=== PATIENT | female | born 1995 | race Caucasian/White ===

== ENCOUNTER 2019-09-05 16:49 | Emergency (ER) | payer SELFPAY ==
[2019-09-05 16:54] VITALS: BP 113/71
[2019-09-05] MEDS ORDERED: PHENAZOPYRIDINE HCL 200 MG TABLET PO ONE (17:03)
--- NOTE | 2019-09-05 17:06 | ER Document Report ---
HPI - HPI Patient complains to provider of: PAIN WITH VOID Time Seen by Provider: 09/05/19 16:59 Onset: This morning Onset/Duration: Sudden Quality of pain: Burning Context: 24-year-old female presents with complaints of pain with void. Reports [facility] and treated for STD and BV. She reports she still taking antibiotics for the BV. She was treated for the STD. She reports at that time they told her that she did not have a urinary tract infection. She reports when she woke up this morning she had pain with voiding. She denies fever vomiting diarrhea. Denies flank and abdominal pain. She declines a pelvic to test for STDs. Associated Symptoms: None Exacerbated by: Denies Relieved by: Denies Similar symptoms previously: Yes Recently seen / treated by doctor: Yes - REPRODUCTIVE Reproductive: DENIES: : Past Medical History - General Information source: Patient Last Menstrual Period: ONE WEEK AGO - Social History Smoking Status: Unknown if Ever Smoked Frequency of alcohol use: None Drug Abuse: None Family History: Reviewed & Not Pertinent Patient has suicidal ideation: No Patient has homicidal ideation: No Neurological Medical History: Reports: Hx Migraine Endocrine Medical History: Denies: Hx Diabetes Mellitus Type 1 Renal/ Medical History: Reports: Other - BV Psychiatric Medical History: Reports: Hx Anxiety, Hx Attention Deficit Hyperactivity Disorder, Hx Bipolar Disorder Past Surgical History: Reports: Hx Tonsillectomy - adnoids - Immunizations Immunizations up to date: Yes Hx Diphtheria, Pertussis, Tetanus Vaccination: Yes - unknown Vertical Provider Document - CONSTITUTIONAL Agree With Documented VS: Yes Exam Limitations: No Limitations General Appearance: WD/WN, No Apparent Distress - INFECTION CONTROL TRAVEL OUTSIDE OF THE [place] IN LAST 30 DAYS: No - HEENT HEENT: Atraumatic, Normocephalic. negative: Conjuctival Injection - NECK Neck: Supple - RESPIRATORY Respiratory: Breath Sounds Normal, No Respiratory Distress - CARDIOVASCULAR Cardiovascular: Regular Rate, Regular Rhythm - GI/ABDOMEN Gastrointestinal: negative: Abdomen Soft, Abdomen Non-Tender - BACK Back: negative: CVA Tenderness-Right, CVA Tenderness-Left - MUSCULOSKELETAL/EXTREMETIES Musculoskeletal/Extremeties: FRANK LOPEZ - NEURO Level of Consciousness: Awake, Alert, Appropriate - DERM Integumentary: Warm, Dry Course - Re-evaluation Re-evalutation: 09/05/19 17:59 UA with positive leukocytes large amount of WBCs. Patient was instructed on UTI, Macrobid. Instructed on signs and symptoms of allergic reaction. Instructed on pushing fluids. She verbalized understanding to all instructions. Laboratory 09/05/19 17:10 Urine Color PEEWEE Urine Appearance CLOUDY Urine pH 6.0 Ur Specific Tyler 1.023 Urine Protein 100 H Urine Glucose (UA) NEGATIVE Urine Ketones NEGATIVE Urine Blood LARGE H Urine Nitrite (Reflex) NEGATIVE Urine Bilirubin NEGATIVE Urine Urobilinogen 2.0 H Leukocyte Esterase Rfl LARGE H Urine RBC (Auto) >182 Urine WBC (Reflex) > 182 Urine WBC Clumps MANY Squamous Epi Cells Auto 4 U Non-Squamous Epis Auto 1 Urine Mucus (Auto) FEW Urine Ascorbic Acid NEGATIVE - Vital Signs Vital signs: Temp Pulse Resp BP Pulse Ox 98.8 F 94 18 113/71 99 09/05/19 16:53 09/05/19 16:53 09/05/19 16:53 09/05/19 16:53 09/05/19 16:53 Discharge - Discharge Clinical Impression: Pain on voiding UTI (urinary tract infection) Qualifiers: Urinary tract infection type: site unspecified Hematuria presence: with hematuria Qualified Code(s): N39.0 - Urinary tract infection, site not specified Condition: Stable Disposition: HOME, SELF-CARE Instructions: Nitrofurantoin ([facility]), Urinary Anesthetic Agent ([facility]), Urinary Tract Infection ([facility]) Additional Instructions: *You have been evaluated for pain while voiding, UTI *Take medication as prescribed *Urine culture is pending. You may be contacted should they need to change her antibiotic. *Push fluids *Follow up with your primary care provider within 1 week for recheck *Return to ED for worsening condition, changes, needs, concerns Prescriptions: Nitrofurantoin Macrocrystal [Macrodantin] 100 mg PO BID #20 capsule Forms: Return to Work
[2019-09-05 17:44] LABS: APPEARANCE,URINE CLOUDY; BILIRUBIN,URINE NEGATIVE (NEGATIVE); COLOR,URINE AMBER; GLUCOSE, URINE NEGATIVE (NEGATIVE); KETONES,URINE NEGATIVE (NEGATIVE); PROTEIN,URINE 100 mg/dL (NEGATIVE); URINE SPECIFIC GRAVITY 1.023
[2019-09-05] MEDS ORDERED: NITROFURANTOIN MONOHYD/M-CRYST 100 MG CAPSULE PO ONE (17:55)
== END 2019-09-05 18:06 | disposition home or self-care (01) ==
LOC: ER 16:49
DX: N39.0 Urinary tract infection, site not specified (principal); R30.0 Dysuria
CPT/HCPCS: 99283; 81025; 81001; J3490; J8499